=== PATIENT | male | born 1945 | race Caucasian/White ===

== ENCOUNTER 2017-08-30 16:35 | Emergency (ER) | payer MEDICARE ==
[~2017-08-30] VITALS: Ht 177.8 cm; Wt 90.0 kg
[~2017-08-30 16:35] MED LIST: COUMADIN5 MG PO; METFORMIN500 MG PO; METOPROLOL SUCC50 MG PO; MINOCYCLINE50 MG PO; PEPCID AC10 M1 OR; VICODIN1 TAB OR; VITAMIN B-121000 MCG PO
[2017-08-30 17:49] LABS: HEMATOCRIT 41.4 % (39.0-50.0); HEMOGLOBIN 13.9 g/dl (14.0-18.0); IMMATURE GRANULOCYTES 0.4 % (0.0-1.0); MEAN CELL VOLUME 101.7 fL CALC (80.0-100.0); MEAN CORPUSCULAR HGB 34.2 pG CALC (26.0-32.0); MEAN CORPUSCULAR HGB CONC 33.6 g/L CALC (32.0-36.0); NEUT# 9.72 thou/uL (1.82-7.42); RED BLOOD COUNT 4.07 mill/uL (4.70-6.10); RED CELL DISTRI WIDTH 13.2 % (11.5-15.5)
[2017-08-30 18:04] LABS: ALBUMIN 4.4 g/dL (3.2-5.0); ALKALINE PHOSPHATASE 87 u/l (38-126); AMYLASE 85 u/l (30-110); ANION GAP 16 (6-22 (CALC)); BILIRUBIN, TOTAL 0.6 mg/dL (0.0-1.4); BUN 32 mg/dL (8-23); BUN/CREATININE RATIO 31 (12-20 (CALC)); CALCIUM 9.3 mg/dL (8.4-10.2); CARBON DIOXIDE 25 mmol/l (22-30); CHLORIDE 105 mmol/l (95-108); GFR > 60 ML/MIN (>=60 (CALC)); GFR FOR AFR.AMER. > 60 ML/MIN (>=60 (CALC)); GLUCOSE 175 mg/dL (82-115); LIPASE 161 u/l (23-300); POTASSIUM 4.2 mmol/l (3.5-5.1); SGOT/AST 26 u/l (19-48); SGPT/ALT 28 u/l (11-66); SODIUM 142 mmol/l (137-146); TOTAL PROTEIN 7.7 g/dL (6.3-8.2)
[2017-08-30 18:07] LABS: INTERNATIONAL NORMALIZED RATIO 2.3 RATIO (0.7-1.3); PROTHROMBIN TIME 25.7 SECONDS (9.0-12.5)
[2017-08-30 18:15] LABS: MYOGLOBIN 27 ng/mL (0 - 121)
[2017-08-30 19:41] VITALS: BP 160/95
== END 2017-08-30 19:42 ==
LOC: ED 16:35
PROVIDERS: Emergency Medicine
DX: K92.2 Gastrointestinal hemorrhage, unspecified (principal); E11.9 Type 2 diabetes mellitus without complications; I48.91 Unspecified atrial fibrillation; Z79.01 Long term (current) use of anticoagulants
CPT/HCPCS: S0164

== ENCOUNTER 2019-01-07 17:46 | Emergency (ER) | payer MEDICARE ==
[~2019-01-07] VITALS: Ht 177.8 cm; Wt 70.0 kg
[2019-01-07] MEDS ORDERED: VOLTAREN - GENE75 MG PO (18:58)
[2019-01-07 19:32] VITALS: BP 124/72
== END 2019-01-07 19:25 | disposition home or self-care (01) ==
LOC: ED 17:46
DX: S86.911A Strain of unspecified muscle(s) and tendon(s) at lower leg level, right leg, initial encounter (principal); M79.604 Pain in right leg; W18.2XXA Fall in (into) shower or empty bathtub, initial encounter; Y93.E1 Activity, personal bathing and showering; Y92.002 Bathroom of unspecified non-institutional (private) residence as the place of occurrence of the external cause

== ENCOUNTER 2023-05-09 08:04 | Emergency (ER) | payer MEDICARE ==
[~2023-05-09] VITALS: Ht 177.8 cm; Wt 82.0 kg
[~2023-05-09 08:04] MED LIST changes: +VOLTAREN - GENE75 MG PO
[2023-05-09 08:12] VITALS: BP 165/87
[2023-05-09 09:29] LABS: ACT PARTIAL THROMBO TIME 30.5 SECONDS (20.0-32.5)
[2023-05-09 09:32] LABS: INTERNATIONAL NORMALIZED RATIO 1.1 RATIO (0.7-1.3)
[2023-05-09 10:48] VITALS: BP 150/77
== END 2023-05-09 11:05 | disposition home or self-care (01) ==
LOC: ED 08:04
PROVIDERS: Family Medicine
PROC: 2Y41X5Z Packing of Nasal Region using Packing Material (ICD-10-PCS; principal; 2023-05-09)
DX: R04.0 Epistaxis (principal); I10 Essential (primary) hypertension; I48.91 Unspecified atrial fibrillation; Z79.01 Long term (current) use of anticoagulants

== ENCOUNTER 2023-11-13 12:14 | Inpatient (IN) | payer MEDICARE ==
[2023-11-13] VITALS (22 sets, daily range): BP systolic 87–119; BP diastolic 44–80
[~2023-11-13] VITALS: Ht 177.8 cm; Wt 82.4 kg
[~2023-11-13 12:14] MED LIST changes: +DILTIAZE PO; +DIOVAN HCT160 MG/25 PO; +EZALLOR SPRINKL10 MG; +GABAPENTIN100 MG PO; +IRON (FERROUS S50 MG; +PROTONIX40 M2 PO; +REPAGLINIDE0.5 MG; +TRAMADOL HCL50 MG PO; +XARELTO15 MG PO
[2023-11-13 12:53] LABS: BASO% 0.1 % (0-3); IMMATURE GRANULOCYTES 0.2 % (0.0-5.0); LYMPH% 17.1 % (15-41); MEAN CELL VOLUME 100.4 fL CALC (80.0-100.0); MEAN CORPUSCULAR HGB 32.8 pG CALC (26.0-32.0); MEAN CORPUSCULAR HGB CONC 32.7 g/dL CAL (32.0-36.0); MONO% 13.4 % (2-13); NEUT# 6.23 thou/uL (1.82-7.42); NEUT% 69.2 % (42-76); RED BLOOD COUNT 5.27 mill/uL (4.70-6.10); RED CELL DISTRI WIDTH 13.8 % (11.5-15.5)
[2023-11-13 12:54] LABS: HEMATOCRIT 52.9 % (39.0-50.0); HEMOGLOBIN 17.3 g/dl (14.0-18.0)
[2023-11-13] MEDS ORDERED: ONDANSETRON HCl 4 MG/2 ML SDV IV ONE (12:55)
[2023-11-13] MEDS ORDERED: SODIUM CHLORIDE 0.9% 1,000 ML IV ONE ×2 (12:55→18:20)
[2023-11-13 14:12] LABS: ALBUMIN 4.8 g/dL (3.2-5.0); BILIRUBIN, TOTAL 0.6 mg/dL (0.2-1.3); TOTAL PROTEIN 9.2 g/dL (6.3-8.2)
[2023-11-13 14:13] LABS: CREATININE 8.2 mg/dL (0.7-1.3)
[2023-11-13] MEDS ORDERED: LACTATED RINGER'S 1,000 ML IV ONE (14:20)
[2023-11-13 14:39] LABS: URINE BLOOD DIPSTICK Moderate (NEGATIVE); URINE COLOR Yellow; URINE GLUCOSE - DIPSTICK 100 mg/dL (NEGATIVE); URINE KETONE Trace mg/dL (NEGATIVE); URINE LEUK ESTERASE Negative (NEGATIVE); URINE NITRITE - DIPSTICK Negative (Negative); URINE PROTEIN - DIPSTICK 100 mg/dL (NEG-TRACE); URINE SPECIFIC GRAVITY >=1.030; URINE UROBILINOGEN - DIPSTICK 0.2 E.U./dL (0.2)
[2023-11-13 14:43] LABS: URINE RBC 0-2 RBC/hpf (0-5)
[2023-11-13 14:44] LABS: URINE AMORPH SEDIMENT MANY hpf (NONE-FER)
[2023-11-13] MEDS ORDERED: JANUVIA50 MG PO (16:27)
[2023-11-13 18:34] LABS: CREATININE 7.7 mg/dL (0.7-1.3); POTASSIUM 5.2 mmol/l (3.5-5.1)
[2023-11-13] MEDS ORDERED: ACETAMINOPHEN 325 MG/TAB PO PRN (18:45)
[2023-11-13] MEDS ORDERED: SODIUM CHLORIDE 0.9% 1,000 ML IV PRN (18:45)
[2023-11-13] MEDS ORDERED: MAGNESIUM HYDROXIDE 30 ML UDC PO PRN (18:45)
[2023-11-13] MEDS ORDERED: ONDANSETRON HCl 4 MG/2 ML SDV IV PRN (18:55)
[2023-11-13] MEDS ORDERED: [UNRECOGNIZED DRUG - REMARK] PO PRN (19:05)
[2023-11-13] MEDS ORDERED: SODIUM CHLORIDE 0.9% 1,000 ML BAG IV STA (20:09)
[2023-11-13] MEDS ORDERED: SODIUM BICARBONATE 150 ML in DEXTROSE 5% 850 ML IV PRN (20:15)
[2023-11-14] VITALS (8 sets, daily range): BP systolic 89–104; BP diastolic 36–50
[2023-11-14 06:53] LABS: BASO% 0.2 % (0-3); IMMATURE GRANULOCYTES 0.3 % (0.0-5.0); LYMPH% 23.1 % (15-41); MEAN CORPUSCULAR HGB 33.9 pG CALC (26.0-32.0); MEAN CORPUSCULAR HGB CONC 34.3 g/dL CAL (32.0-36.0); MONO% 15.8 % (2-13); NEUT# 3.44 thou/uL (1.82-7.42); NEUT% 59.6 % (42-76); RED BLOOD COUNT 3.89 mill/uL (4.70-6.10); RED CELL DISTRI WIDTH 13.8 % (11.5-15.5)
[2023-11-14 06:55] LABS: HEMATOCRIT 38.5 % (39.0-50.0); HEMOGLOBIN 13.2 g/dl (14.0-18.0)
[2023-11-14 07:15] LABS: POTASSIUM 4.2 mmol/l (3.5-5.1)
[2023-11-14 07:31] LABS: BILIRUBIN, TOTAL 0.3 mg/dL (0.2-1.3); CHOLESTEROL HDL RATIO 3.3 (<4.4 (CALC)); CREATININE 7.8 mg/dL (0.7-1.3); POTASSIUM 4.1 mmol/l (3.5-5.1); TOTAL PROTEIN 5.7 g/dL (6.3-8.2)
[2023-11-14 07:32] LABS: CREATININE 7.7 mg/dL (0.7-1.3)
[2023-11-14] MEDS ORDERED: RIVAROXABAN 15 MG TAB PO SCH (09:00)
[2023-11-14] MEDS ORDERED: SODIUM BICARBONATE 150 ML in DEXTROSE 5% 850 ML IV PRN (09:30)
[2023-11-14] MEDS ORDERED: traMADol HCL 50 MG/TAB PO PRN (11:05)
[2023-11-14] MEDS ORDERED: APIXABAN BASE 2.5 MG/TAB TAB PO SCH (11:30)
[2023-11-14] MEDS ORDERED: SODIUM CHLORIDE 0.9% 1,000 ML IV PRN (18:05)
[2023-11-15 00:39] VITALS: BP 121/56
[2023-11-15 04:51] VITALS: BP 120/64
[2023-11-15 06:52] LABS: BASO% 0.1 % (0-3); EOS% 1.2 % (0-8); HEMATOCRIT 37.8 % (39.0-50.0); IMMATURE GRANULOCYTES 0.5 % (0.0-5.0); LYMPH% 20.2 % (15-41); MEAN CELL VOLUME 97.4 fL CALC (80.0-100.0); MEAN CORPUSCULAR HGB 33.5 pG CALC (26.0-32.0); MEAN CORPUSCULAR HGB CONC 34.4 g/dL CAL (32.0-36.0); MONO% 17.8 % (2-13); NEUT# 4.58 thou/uL (1.82-7.42); NEUT% 60.2 % (42-76); RED BLOOD COUNT 3.88 mill/uL (4.70-6.10)
[2023-11-15 07:15] LABS: BILIRUBIN, TOTAL 0.2 mg/dL (0.2-1.3); POTASSIUM 3.4 mmol/l (3.5-5.1); TOTAL PROTEIN 5.8 g/dL (6.3-8.2)
[2023-11-15 07:23] LABS: CREATININE 8.9 mg/dL (0.7-1.3)
[2023-11-15] MEDS ORDERED: INFLUENZA VIRUS VAC SPLIT HIGH DOSE 2023/24 0.7 ML INJ IM SCH (09:00)
[2023-11-15 09:08] VITALS: BP 96/60
[2023-11-15] MEDS ORDERED: Calcium Acetate (Phosphate Bin 667 MG/CAP PO SCH (11:30)
[2023-11-15 19:32] VITALS: BP 104/60
[2023-11-16 00:12] VITALS: BP 137/71
[2023-11-16 04:41] VITALS: BP 151/83
[2023-11-16 05:46] LABS: BASO% 0.1 % (0-3); EOS% 0.6 % (0-8); HEMATOCRIT 40.1 % (39.0-50.0); IMMATURE GRANULOCYTES 0.5 % (0.0-5.0); LYMPH% 22.4 % (15-41); MEAN CELL VOLUME 97.1 fL CALC (80.0-100.0); MEAN CORPUSCULAR HGB 33.9 pG CALC (26.0-32.0); MEAN CORPUSCULAR HGB CONC 34.9 g/dL CAL (32.0-36.0); MONO% 18.1 % (2-13); NEUT# 4.5 thou/uL (1.82-7.42); NEUT% 58.3 % (42-76); RED BLOOD COUNT 4.13 mill/uL (4.70-6.10); RED CELL DISTRI WIDTH 13.8 % (11.5-15.5)
[2023-11-16 05:52] LABS: ALBUMIN 3.3 g/dL (3.2-5.0); MAGNESIUM 2.2 mg/dL (1.6-2.3); POTASSIUM 3.4 mmol/l (3.5-5.1)
[2023-11-16 06:46] VITALS: BP 122/75
[2023-11-16 10:35] VITALS: BP 117/97
[2023-11-16 14:20] VITALS: BP 104/67
[2023-11-16 18:48] VITALS: BP 128/80
[2023-11-17] VITALS (8 sets, daily range): BP systolic 123–185; BP diastolic 70–108
[2023-11-17 06:19] LABS: BASO% 0.3 % (0-3); EOS% 1.3 % (0-8); HEMATOCRIT 38.4 % (39.0-50.0); HEMOGLOBIN 13.2 g/dl (14.0-18.0); IMMATURE GRANULOCYTES 1.3 % (0.0-5.0); LYMPH% 19.4 % (15-41); MEAN CELL VOLUME 98.7 fL CALC (80.0-100.0); MEAN CORPUSCULAR HGB 33.9 pG CALC (26.0-32.0); MEAN CORPUSCULAR HGB CONC 34.4 g/dL CAL (32.0-36.0); MONO% 16.5 % (2-13); NEUT# 4.6 thou/uL (1.82-7.42); NEUT% 61.2 % (42-76); RED BLOOD COUNT 3.89 mill/uL (4.70-6.10); RED CELL DISTRI WIDTH 13.7 % (11.5-15.5)
[2023-11-17 06:40] LABS: POTASSIUM 3.3 mmol/l (3.5-5.1)
[2023-11-17 06:41] LABS: BILIRUBIN, TOTAL 0.4 mg/dL (0.2-1.3); CREATININE 2.6 mg/dL (0.7-1.3)
[2023-11-18 00:34] VITALS: BP 171/83
[2023-11-18 05:13] VITALS: BP 155/89
[2023-11-18 06:30] LABS: BASO% 0.1 % (0-3); EOS% 1.9 % (0-8); HEMATOCRIT 36.8 % (39.0-50.0); HEMOGLOBIN 12.3 g/dl (14.0-18.0); IMMATURE GRANULOCYTES 1.4 % (0.0-5.0); LYMPH% 25.1 % (15-41); MEAN CELL VOLUME 100.5 fL CALC (80.0-100.0); MEAN CORPUSCULAR HGB 33.6 pG CALC (26.0-32.0); MEAN CORPUSCULAR HGB CONC 33.4 g/dL CAL (32.0-36.0); NEUT# 3.98 thou/uL (1.82-7.42); NEUT% 55.5 % (42-76); RED BLOOD COUNT 3.66 mill/uL (4.70-6.10); RED CELL DISTRI WIDTH 13.7 % (11.5-15.5)
[2023-11-18 06:44] LABS: CREATININE 1.7 mg/dL (0.7-1.3); MAGNESIUM 1.8 mg/dL (1.6-2.3); POTASSIUM 3.4 mmol/l (3.5-5.1)
[2023-11-18 07:15] VITALS: BP 166/90
== END 2023-11-18 09:55 | disposition home or self-care (01) | DRG 683 ==
LOC: ED 12:14 → ED-I 18:27 → ED 18:45 → MS2 18:46
PROVIDERS: Family Medicine; Internal Medicine Nephrology; ADMIT Student in an Organized Health Care Education/Training Program; ATTEND Student in an Organized Health Care Education/Training Program
PROC: 0T9B70Z Drainage of Bladder with Drainage Device, Via Natural or Artificial Opening (ICD-10-PCS; 2023-11-14)
PROC: 3E02340 Introduction of Influenza Vaccine into Muscle, Percutaneous Approach (ICD-10-PCS; principal; 2023-11-15)
DX: N17.0 Acute kidney failure with tubular necrosis (principal); E87.20 Acidosis, unspecified; E86.9 Volume depletion, unspecified; E86.0 Dehydration; I95.9 Hypotension, unspecified; E87.5 Hyperkalemia; J10.2 Influenza due to other identified influenza virus with gastrointestinal manifestations; I10 Essential (primary) hypertension; E11.69 Type 2 diabetes mellitus with other specified complication; I48.0 Paroxysmal atrial fibrillation; E83.39 Other disorders of phosphorus metabolism; Z79.01 Long term (current) use of anticoagulants; Z87.11 Personal history of peptic ulcer disease; Z23 Encounter for immunization; Z66 Do not resuscitate; Z20.822 Contact with and (suspected) exposure to COVID-19

== ENCOUNTER 2023-12-06 21:31 | Observation (INO) | payer MEDICARE ==
[~2023-12-06] VITALS: Ht 177.8 cm; Wt 80.0 kg
[~2023-12-06 21:31] MED LIST changes: +JANUVIA50 MG PO
[2023-12-07] VITALS (9 sets, daily range): BP systolic 118–137; BP diastolic 62–77
--- NOTE | 2023-12-07 00:34 | NUR ---
PT TAKEN TO ER ROOM 3 VIA WHEELCHAIR, C/O NAUSEA AND VOMITING THAT DEVELOPED AROUND 10AM THIS MORNING. PROVIDER NOTIFIED. CALL OLESYA WITHIN REACH.
[2023-12-07] MEDS ORDERED: ONDANSETRON HCl 4 MG/2 ML SDV IV ONE (01:15)
[2023-12-07] MEDS ORDERED: SODIUM CHLORIDE 0.9% 1,000 ML IV ONE (01:15)
--- NOTE | 2023-12-07 01:40 | NUR ---
PT TAKEN TO CT SCAN
[2023-12-07 01:44] LABS: BASO% 0.1 % (0-3); EOS% 2.2 % (0-8); HEMOGLOBIN 13.7 g/dl (14.0-18.0); IMMATURE GRANULOCYTES 0.4 % (0.0-5.0); LYMPH% 5.9 % (15-41); MEAN CELL VOLUME 103.1 fL CALC (80.0-100.0); MEAN CORPUSCULAR HGB 32.9 pG CALC (26.0-32.0); MEAN CORPUSCULAR HGB CONC 31.9 g/dL CAL (32.0-36.0); MONO% 8.7 % (2-13); NEUT# 8.05 thou/uL (1.82-7.42); NEUT% 82.7 % (42-76); RED BLOOD COUNT 4.16 mill/uL (4.70-6.10); RED CELL DISTRI WIDTH 13.9 % (11.5-15.5)
[2023-12-07 01:50] LABS: HEMATOCRIT 42.9 % (39.0-50.0)
--- NOTE | 2023-12-07 01:50 | NUR ---
PT RETURNED FROM CT SCAN
[2023-12-07 02:07] LABS: ALBUMIN 4.2 g/dL (3.2-5.0); ALKALINE PHOSPHATASE 140 u/l (38-126); ANION GAP 16 (6-22 (CALC)); BILIRUBIN, TOTAL 0.6 mg/dL (0.2-1.3); BUN 24 mg/dL (8-23); BUN/CREATININE RATIO 18 (12-20 (CALC)); CARBON DIOXIDE 24 mmol/l (22-30); CHLORIDE 105 mmol/l (95-108); CREATININE 1.3 mg/dL (0.7-1.3); GFR FOR AFR.AMER. > 60 ML/MIN (>=60 (CALC)); GFR OTHER RACES 54 ML/MIN (>=60 (CALC)); LIPASE 156 u/l (23-300); POTASSIUM 4.1 mmol/l (3.5-5.1); SGOT/AST 25 u/l (19-48); SODIUM 140 mmol/l (137-146); TOTAL PROTEIN 7.6 g/dL (6.3-8.2)
--- NOTE | 2023-12-07 02:55 | NUR ---
Reassessment of patient completed. No distress noted.
--- NOTE | 2023-12-07 03:00 | NUR ---
REPORT RECEIVED FROM Daniella SEVERINO RN
--- NOTE | 2023-12-07 03:20 | NUR ---
PATIENT PROVIDED WITH URINAL, ASKED TO PROVID URINE SPECIMEN.
[2023-12-07] MEDS ORDERED: SODIUM CHLORIDE 0.9% 1,000 ML IV PRN (03:45)
[2023-12-07] MEDS ORDERED: ACETAMINOPHEN 325 MG/TAB PO PRN (03:45)
[2023-12-07] MEDS ORDERED: MAGNESIUM HYDROXIDE 30 ML UDC PO PRN (03:45)
[2023-12-07 04:22] LABS: URINE BLOOD DIPSTICK Negative (NEGATIVE); URINE GLUCOSE - DIPSTICK Negative (NEGATIVE); URINE KETONE 40 mg/dL (NEGATIVE); URINE LEUK ESTERASE Negative (NEGATIVE); URINE NITRITE - DIPSTICK Negative (Negative); URINE PH 5.5 (4.5-8.0); URINE PROTEIN - DIPSTICK 100 mg/dL (NEG-TRACE); URINE SPECIFIC GRAVITY >=1.030; URINE UROBILINOGEN - DIPSTICK 0.2 E.U./dL (0.2)
[2023-12-07 04:24] LABS: URINE COLOR Yellow
[2023-12-07 04:32] LABS: URINE MUCUS FEW hpf (NONE-FEW); URINE SQUAMOUS EPITHELIAL CELL FEW EPI/hpf (0-FEW); URINE WBC 0-2 WBC/hpf (0-5)
--- NOTE | 2023-12-07 04:45 | NUR ---
PATIENT RESTING IN BED, NO APPARENT DISTRESS NOTED. CALL LIGHT AND BEDSIDE TABLE WITHIN REACH.
--- NOTE | 2023-12-07 06:00 | NUR ---
PATIENT MOVED TO ROOM 15. PATIENT AWAITING BED ON MED SURG.
--- NOTE | 2023-12-07 07:00 | NUR ---
PT IN ROOM RESTING WITH EYES CLOSED. VITALS ARE STABLE. PT IS AWAITING A BED ON MED SURGE AND IS PENDING CONSULT WITH SURGEON
--- NOTE | 2023-12-07 08:00 | NUR ---
PT IN ROOM RESTING WITH EYES OPEN. PT IS NPO HE IS PENDING CONSULTATION WITH SURGEON. NO CONCERNS TO REPORT AT THIS TIME.
--- NOTE | 2023-12-07 09:00 | NUR ---
PT IN ROOM RESTING WITH EYES OPEN. NO ISSUES TO REPORT AT THIS TIME
[2023-12-07] MEDS ORDERED: MIDAZOLAM HCL 2 MG/2 ML VIAL IV PRN (11:10)
--- NOTE | 2023-12-07 11:15 | NUR ---
SPOKE WITH DR CORDOVA REGARDING STATUS OF PT. HE INSTRUCTED THAT I CALL SURGEON CMO & PRESIDENT TODAY. WILL CALL DR DAMON WHO IS THE SURGEON CMO & PRESIDENT TODAY. PT IN ROOM STABLE, NO CONCERNS TO REPORT AT THIS TIME. DAUGHTER IN ROOM WITH PT AT BEDSIDE.
[2023-12-07] MEDS ORDERED: SODIUM CHLORIDE 0.9% 1,000 ML IV STA (11:24)
[2023-12-07] MEDS ORDERED: PIPERACILLIN Sodium-Tazobactam 3.375 GM in SODIUM CHLORIDE 0.9% 100 ML IV STA (11:24)
--- NOTE | 2023-12-07 11:26 | NUR ---
SPOKE WITH DR DAMON REGARDING CONSULT. VERBAL ORDER/READ BACK GIVEN ZOSYN 3.375 GM AND FLUIDS . HE STATED HE WILL SEE PT WHEN ROUNDING.
--- NOTE | 2023-12-07 11:45 | NUR ---
PT SITTING UP IN BED EATING LUNCH TRAY. VSS. PT DENIES ANY NEEDS AT THIS TIME. MEDICATIONS INITIATED.
--- NOTE | 2023-12-07 12:22 | NUR ---
PT UP TO ER BATHROOM WITH STEDAY GAIT. NO ACUTE DISTRESS NOTED.
[2023-12-07] MEDS ORDERED: ZOFRAN4 MG/TAB PO (12:42)
--- NOTE | 2023-12-07 13:50 | NUR ---
FIORYUDELKA AT PTS SIDE FOR EVEALUATION. PT IS ALERT AND COOPERATIVE.
--- NOTE | 2023-12-07 14:40 | NUR ---
PT RESTING IN BED. VSS. PT EDUCATED ON PLAN FOR DISCHARGE. PT STATES UNDERSTANDING AND DENIES ANY NEEDS AT [facility].
--- NOTE | 2023-12-07 15:55 | NUR ---
D/C instructions given with verbalization of understanding. Pt. discharged home in stable condition.
== END 2023-12-07 15:48 | disposition home or self-care (01) ==
LOC: ED 21:31 → ED-I 12-07 03:46
PROVIDERS: Emergency Medicine; ADMIT Student in an Organized Health Care Education/Training Program; ATTEND Student in an Organized Health Care Education/Training Program
DX: A08.4 Viral intestinal infection, unspecified (principal); E86.0 Dehydration; I10 Essential (primary) hypertension; E11.9 Type 2 diabetes mellitus without complications; I48.0 Paroxysmal atrial fibrillation; Z79.84 Long term (current) use of oral hypoglycemic drugs; Z87.11 Personal history of peptic ulcer disease; Z90.01 Acquired absence of eye; Z20.822 Contact with and (suspected) exposure to COVID-19

== ENCOUNTER 2024-10-15 10:42 | Emergency (ER) | payer MEDICARE ==
[~2024-10-15] VITALS: Ht 177.8 cm; Wt 98.0 kg
[~2024-10-15 10:42] MED LIST changes: +ZOFRAN4 MG/TAB PO
[2024-10-15 10:51] VITALS: BP 200/92
[2024-10-15] MEDS ORDERED: ONDANSETRON HCl 4 MG/2 ML SDV IV ONE (11:00)
[2024-10-15] MEDS ORDERED: MORPHINE SULFATE 4 MG/ML VIAL IV ONE (11:00)
[2024-10-15] MEDS ORDERED: WARFARIN SODIUM1 MG PO (11:01)
[2024-10-15 11:09] LABS: BASO% 0.3 % (0-3); EOS% 0.8 % (0-8); HEMATOCRIT 35.9 % (39.0-50.0); IMMATURE GRANULOCYTES 0.3 % (0.0-5.0); LYMPH% 9.8 % (15-41); MEAN CELL VOLUME 103.5 fL CALC (80.0-100.0); MEAN CORPUSCULAR HGB 34.6 pG CALC (26.0-32.0); MEAN CORPUSCULAR HGB CONC 33.4 g/dL CAL (32.0-36.0); MONO% 5.9 % (2-13); NEUT# 9.86 thou/uL (1.82-7.42); NEUT% 82.9 % (42-76); RED BLOOD COUNT 3.47 mill/uL (4.70-6.10); RED CELL DISTRI WIDTH 13.4 % (11.5-15.5)
[2024-10-15 11:24] LABS: ALBUMIN 4.7 g/dL (3.2-5.0); CREATININE 0.9 mg/dL (0.7-1.3); POTASSIUM 4.8 mmol/l (3.5-5.1)
[2024-10-15 11:31] VITALS: BP 150/63
[2024-10-15 11:35] LABS: BILIRUBIN, TOTAL 1.3 mg/dL (0.2-1.3); TOTAL PROTEIN 8.8 g/dL (6.3-8.2)
[2024-10-15 11:48] LABS: INTERNATIONAL NORMALIZED RATIO 10.4 RATIO (0.7-1.3); PROTHROMBIN TIME 93.5 SECONDS (9.0-12.5)
[2024-10-15] MEDS ORDERED: HYDROmorphone HCL 2 MG/AMP IV ONE (12:10)
[2024-10-15] MEDS ORDERED: PHYTONADIONE 5 MG/TAB PO ONE (12:25)
[2024-10-15] MEDS ORDERED: HYDROCO/APAP1 TA9 PO (13:54)
[2024-10-15] MEDS ORDERED: TAMSULOSIN0.4 MG PO (13:59)
[2024-10-15 14:01] VITALS: BP 163/84
[2024-10-15 14:09] VITALS: BP 163/84
== END 2024-10-15 14:42 | disposition home or self-care (01) ==
LOC: ED 10:42
PROVIDERS: Family Medicine
DX: S30.0XXA Contusion of lower back and pelvis, initial encounter (principal); R79.1 Abnormal coagulation profile; T45.515A Adverse effect of anticoagulants, initial encounter; N20.1 Calculus of ureter; I48.91 Unspecified atrial fibrillation; I10 Essential (primary) hypertension; E11.9 Type 2 diabetes mellitus without complications; W18.2XXA Fall in (into) shower or empty bathtub, initial encounter; Y93.E1 Activity, personal bathing and showering; Y92.002 Bathroom of unspecified non-institutional (private) residence as the place of occurrence of the external cause; Z79.84 Long term (current) use of oral hypoglycemic drugs; Z79.01 Long term (current) use of anticoagulants
CPT/HCPCS: J1171; J2405; Q9967